=== PATIENT | female | born 1960 | race Caucasian/White ===

== ENCOUNTER 2017-06-30 08:29 | Day surgery (SDC) | payer BC ==
[~2017-06-30] VITALS: Ht 167.6 cm; Wt 70.8 kg
[~2017-06-30 08:29] MED LIST: ADVIL100 MG; CALCIUM + D SO1 EACH; Coq-1030 MG; FISH OIL + D31 EACH; Hair, Skin & N1 EACH; PRAV20; TUMS200 MG
[2017-06-30] MEDS ORDERED: Adult Low Dose81 MG (08:50)
== END 2017-06-30 10:41 | disposition home or self-care (01) ==
LOC: ORSCSDS 08:29
PROVIDERS: Internal Medicine Gastroenterology
PROC: 0DBL8ZX Excision of Transverse Colon, Via Natural or Artificial Opening Endoscopic, Diagnostic (ICD-10-PCS; principal; 2017-06-30 09:45)
PROC: 0DBC8ZX Excision of Ileocecal Valve, Via Natural or Artificial Opening Endoscopic, Diagnostic (ICD-10-PCS; principal; 2017-06-30 09:45)
PROC: 0DBK8ZX Excision of Ascending Colon, Via Natural or Artificial Opening Endoscopic, Diagnostic (ICD-10-PCS; principal; 2017-06-30 09:45)
DX: Z86.010 Personal history of colon polyps (principal); Z83.71 Family history of colonic polyps; D12.0 Benign neoplasm of cecum; D12.2 Benign neoplasm of ascending colon; D12.3 Benign neoplasm of transverse colon; K57.30 Diverticulosis of large intestine without perforation or abscess without bleeding; Z87.891 Personal history of nicotine dependence
CPT/HCPCS: 88305

== ENCOUNTER 2022-08-24 08:59 | Day surgery (SDC) | payer BC ==
[~2022-08-24] VITALS: Ht 167.6 cm; Wt 70.9 kg
[~2022-08-24 08:59] MED LIST changes: +Adult Low Dose81 MG
[2022-08-24 10:41] VITALS: BP 114/67
--- NOTE | 2022-08-24 10:43 | NUR ---
08/24/22 [facility] S[facility] WNL
== END 2022-08-24 10:43 | disposition home or self-care (01) ==
LOC: ORSCSDS 08:59
PROVIDERS: Internal Medicine Gastroenterology
PROC: 0DBK8ZX Excision of Ascending Colon, Via Natural or Artificial Opening Endoscopic, Diagnostic (ICD-10-PCS; principal; 2022-08-24 10:30)
DX: Z12.11 Encounter for screening for malignant neoplasm of colon (principal); Z86.010 Personal history of colon polyps; D12.2 Benign neoplasm of ascending colon; K57.30 Diverticulosis of large intestine without perforation or abscess without bleeding; Z87.891 Personal history of nicotine dependence; Z79.899 Other long term (current) drug therapy
CPT/HCPCS: 88305; J2001; J2704; J7120